=== PATIENT | female | born 1945 | race Caucasian/White ===

== ENCOUNTER 2019-05-31 13:21 | Inpatient (IN) | payer MEDICARE, OTHER ==
[2019-05-31] MEDS ORDERED: IPRATROPIUM/ALBUTEROL (0.5MG/3MG) NEB INH ONE (13:42)
[2019-05-31] MEDS ORDERED: METHYLPREDNISOLONE PF 125MG/VIAL IVP ONE (14:02)
[2019-05-31 14:14] LABS: ABSOLUTE NEUTROPHIL COUNT 5.44; BASO % 0.4 % (0-6); EOS % 0.1 % (0-6); GRAN % 78.8 % (47-80); HEMATOCRIT 43.4 % (35.0-47.0); HEMOGLOBIN 13.9 gm/dl (11.6-16.0); MEAN CELL VOLUME 86.6 fl (81-97); MEAN CORPUSCULAR HEMOGLOBIN 27.7 pg (27-33); MEAN PLATELET VOLUME 10.6 fl (7.4-10.4); MONO % 11.7 % (0-9); PLATELET COUNT 171 K/uL (130-400); RED BLOOD COUNT 5.01 M/uL (3.80-5.40); RED CELL DISTRIBUTION WIDTH 13.7 % (11.5-14.5); WHITE BLOOD COUNT W/O DIFF 6.9 K/uL (4.2-12.2)
[2019-05-31 14:24] LABS: BLOOD UREA NITROGEN 15 mg/dL (8-23); CREATININE 0.7 mg/dL (0.5-0.9); EST GLOMERULAR FILTRATION RATE > 60 mL/min
[2019-05-31 14:25] LABS: TOTAL PROTEIN 7.5 g/dL (6.6-8.7)
[2019-05-31 14:27] LABS: GLUCOSE,RANDOM 109 mg/dL (74-109)
[2019-05-31 14:29] LABS: ALB/GLOB RATIO 1.5 (1.1-1.8); ALBUMIN 4.5 g/dL (4.0-5.0); ALKALINE PHOSPHATASE 106 U/L (35-104); ALT/SGPT 17 U/L (<33); AST/SGOT 25 U/L (10.0-35.0)
--- NOTE | 2019-05-31 15:00 | Emergency Department Record ---
History of Present Illness - General Chief Complaint: Shortness of breath Stated Complaint: NASRA,ALLERGY Time Seen by Provider: 05/31/19 13:56 Source: Patient Mode of Arrival: Ambulatory Limitations: No limitations - History of Present Illness Initial Comments: pt recently moved here and states she is sob because she is allergic to dust and cockroaches. she states there is dust in her current home and cockroaches when she lived in [place]. she quit smoking in 2007. she takes no meds including no allergy meds. 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 Complaint: Shortness of breath Onset/Timin -: Week(s) Severity: Moderate Consistency: Getting worse Context: Allergen exposure, Recent illness, Recent URI, Recent travel Associated Symptoms: Cough Treatments Prior to Arrival: None - Related Data Home Oxygen Therapy: No Home Oxygen Amount: none Home Medications Medication Instructions Recorded Confirmed Last Taken No Home Med [NO HOME MEDS] 05/31/19 05/31/19 Unknown Allergies Allergy/AdvReac Type Severity Reaction Status Date / Time infliximab [From Remicade] Allergy pt thinks Verified 05/31/19 13:29 she had 2 heart attacks on it naproxen [From Naprosyn] Allergy burning Verified 05/31/19 13:29 sensation in knees Travel Screening - Travel/Exposure Within Last 30 Days Have you traveled within the last 30 days?: No Review of Systems Reviewed: No additional complaints except as noted below Constitutional: Reports: As per HPI. Denies: Chills, Fever, Malaise, Night sweats, Weakness, Weight change Eyes: Reports: As per HPI. Denies: Eye discharge, Eye pain, Photophobia, Vision change ENT: Reports: As per HPI, Congestion. Denies: Dental pain, Ear pain, Epistaxis, Hearing loss, Throat pain Respiratory: Reports: As per HPI, Cough. Denies: Dyspnea, Hemoptysis, Stridor, Wheezes Cardiovascular: Reports: As per HPI. Denies: Arrhythmia, Chest pain, Dyspnea on exertion, Edema, Murmurs, Orthopnea, Palpitations, Paroxysmal nocturnal dyspnea, Rheumatic Fever, Syncope Endocrine: Reports: As per HPI, Fatigue. Denies: Heat or cold intolerance, Polydipsia, Polyuria Gastrointestinal: Reports: As per HPI. Denies: Abdominal pain, Constipation, Diarrhea, Hematemesis, Hematochezia, Melena, Nausea, Vomiting Genitourinary: Reports: As per HPI. Denies: Abnormal menses, Discharge, Dyspareunia, Dysuria, Frequency, Hematuria, Incontinence, Retention, Urgency Musculoskeletal: Reports: As per HPI. Denies: Arthralgia, Back pain, Gout, Joint swelling, Myalgia, Neck pain Skin: Reports: As per HPI. Denies: Bruising, Change in color, Change in hair/nails, Lesions, Pruritus, Rash Neurological: Reports: As per HPI. Denies: Abnormal gait, Confusion, Headache, Numbness, Paresthesias, Seizure, Tingling, Tremors, Vertigo, Weakness Psychiatric: Reports: As per HPI. Denies: Anxiety, Auditory hallucinations, Depression, Homicidal thoughts, Suicidal thoughts, Visual hallucinations Hematological/Lymphatic: Reports: As per HPI. Denies: Anemia, Blood Clots, Easy bleeding, Easy bruising, Swollen glands Past Medical History - SOCIAL HISTORY Smoking Status: Former smoker Alcohol Use: Occasional Drug Use: None - RESPIRATORY Hx Respiratory Disorders: Yes Hx COPD: Yes - CARDIOVASCULAR Hx Cardio Disorders: Yes Hx Heart Attack: Yes - NEURO Hx Neuro Disorders: No - GI Hx GI Disorders: No - Hx Genitourinary Disorders: No - ENDOCRINE Hx Endocrine Disorders: No - MUSCULOSKELETAL Hx Musculoskeletal Disorders: Yes Hx Fibromyalgia: Yes - HEMATOLOGY/ONCOLOGY Hx Hematology/Oncology Disorders: No Family Medical History Any Significant Family History?: No Physical Exam - General General Appearance: Alert, Oriented x3, Cooperative, Mild distress - Head Head exam: Normal inspection - Eye Eye exam: Normal appearance, PERRL, EOMI Pupils: Normal accommodation - ENT ENT exam: Normal exam, Mucous membranes moist, Normal external ear exam, Normal orophraynx Ear exam: Normal external inspection. negative: External canal tenderness Nasal Exam: Normal inspection. negative: Discharge, Sinus tenderness Mouth exam: Normal external inspection, Tongue normal Teeth exam: Normal inspection. negative: Dental caries Throat exam: Normal inspection. negative: Tonsillar erythema, Tonsillar exudate - Neck Neck exam: Normal inspection, Full ROM. negative: Tenderness - Respiratory Respiratory exam: Rales, Respiratory distress, Wheezes - Cardiovascular Cardiovascular Exam: Normal rhythm, Normal heart sounds, Tachycardia - GI/Abdominal GI/Abdominal exam: Soft, Normal bowel sounds. negative: Tenderness - Rectal Rectal exam: Deferred - exam: Deferred - Extremities Extremities exam: Normal inspection, Full ROM, Normal capillary refill. negative: Tenderness - Back Back exam: Reports: Normal inspection, Full ROM. Denies: Muscle spasm, Rash noted, Tenderness - Neurological Neurological exam: Alert, CN II-XII intact, Normal gait, Oriented X3 - Psychiatric Psychiatric exam: Normal affect, Normal mood - Skin Skin exam: Dry, Intact, Normal color, Warm Course Vital Signs 05/31/19 05/31/19 05/31/19 13:25 13:45 14:13 Temperature 98.5 F Pulse Rate 104 H 104 H Respiratory 20 18 Rate Blood Pressure 143/98 Pulse Ox 92 L 97 93 L - Reevaluation(s) Reevaluation #1: 05/31/19 17:20 pt feels better. pt ambulated and dropped sats briefly to 89 but bounced right back up to low 90s. pt feels better Reevaluation #2: 05/31/19 17:22 ct neg for pe but pos for inflammation Reevaluation #3: 05/31/19 17:42 pts sats continue to decline to mid 80s so she will be admitted. Medical Decision Making - Lab Data Result diagrams: 05/31/19 13:35 05/31/19 13:35 Lab Results 05/31/19 05/31/19 05/31/19 Range/Units 13:35 13:35 13:35 WBC 6.9 (4.2-12.2) K/uL RBC 5.01 (3.80-5.40) M/uL Hgb 13.9 (11.6-16.0) gm/dl Hct 43.4 (35.0-47.0) % MCV 86.6 (81-97) fl MCH 27.7 (27-33) pg MCHC 32.0 (32-36) g/dl RDW 13.7 (11.5-14.5) % Plt Count 171 (130-400) K/uL MPV 10.6 H (7.4-10.4) fl Gran % 78.8 (47-80) % Lymphocytes % 9.0 L (16-45) % Monocytes % 11.7 H (0-9) % Eosinophils % 0.1 (0-6) % Basophils % 0.4 (0-6) % Absolute Neutrophils 5.44 D-Dimer 1.40 H (0-0.59) mg/L FEU Sodium 133 L (136-145) mmol/L Potassium 3.5 (3.4-4.5) mmol/L Chloride 93 L (98-107) mmol/L Carbon Dioxide 22.0 (22-29) mmol/L Anion Gap 18.0 H (7-16) BUN 15 (8-23) mg/dL Creatinine 0.7 (0.5-0.9) mg/dL Estimated GFR > 60 mL/min Random Glucose 109 (74-109) mg/dL Calcium 9.0 (8.8-10.2) mg/dL Total Bilirubin 0.70 (0.2-1.0) mg/dL AST 25 (10.0-35.0) U/L ALT 17 (<33) U/L Alkaline Phosphatase 106 H (35-104) U/L NT-Pro-B Natriuret Pep 537.80 H (<125) pg/mL Total Protein 7.5 (6.6-8.7) g/dL Albumin 4.5 (4.0-5.0) g/dL Globulin 3.0 (1.4-4.8) gm/dL Albumin/Globulin Ratio 1.5 (1.1-1.8) Disposition Disposition: Admit Clinical Impression: COPD with hypoxia Pneumonia Qualifiers: Pneumonia type: due to unspecified organism Laterality: bilateral Lung location: unspecified part of lung Qualified Code(s): J18.9 - Pneumonia, unspecified organism Disposition: Still a Patient at [facility] Decision to Admit: Admit from ER Decision to Admit Date: 05/31/19 Decision to Admit Time: 17:45 Forms: Patient Portal Access Quality - Quality Measures Quality Measures: N/A - Blood Pressure Screening Does Patient Have Any of the Following: No Blood Pressure Classification: Hypertensive Reading Systolic Measurement: 143 Diastolic Measurement: 98 Screening for High Blood Pressure: < First Hypertensive BP, F/U Documented > [G8950] First Hypertensive Follow-up Interventions: Follow-up with rescreen GT 1 day and LT 4 weeks.
--- NOTE | 2019-05-31 15:51 | CT ANGIOGRAM REPORT ---
EXAMINATION: CT Angiography of the Thorax EXAM DATE: 05/31/2019 3:19 PM TECHNIQUE: Standard protocol CT angiogram images were obtained through the chest following the admini stration of intravenous contrast. Coronal and sagittal MIP 3-D reformations were performed. IV Contrast: 62 mL Omnipaque 350 INDICATION: Acute shortness of breath with elevated d-dimer. COMPARISON: None FINDINGS: Very good pulmonary artery enhancement. No evidence of pulmonary embolus. Normal heart size. No evide nce of right heart strain. Atherosclerotic aortic and coronary artery calcifications. Very mild inflammatory changes in the right middle lobe. Mild right middle lobe and bilateral lower l obe peribronchial thickening. No focal suspicious lesion. Calcified granuloma in the posterior inferi or left lower lobe. No enlarged lymph nodes. No acute bony abnormality. No abnormality detected on slice images through t he upper abdomen. Loss of height at T10 looks old. IMPRESSION: 1. No evidence of pulmonary embolus. 2. Mild peribronchial thickening and very mild right middle lobe inflammatory changes. 3. Aortic and coronary artery atherosclerosis. Dictated by: Dale Gongora MD on 05/31/2019 3:41 PM. .
[2019-05-31] MEDS ORDERED: ALBUTEROL SULFATE (0.083%) 2.5 MG/3 ML NEB INH ONE (16:40)
[2019-05-31] MEDS ORDERED: ALBUTEROL HFA 8 GM INHALER INH ONE (17:00)
[2019-05-31] MEDS ORDERED: AZITHROMYCIN 500 MG TABLET PO ONE (17:01)
[2019-05-31] MEDS ORDERED: ALBUTEROL SULFATE (0.083%) 2.5 MG/3 ML NEB INH PRN (17:56)
[2019-05-31] MEDS ORDERED: CEFTRIAXONE SODIUM 1 GM in 0.9 % SODIUM CHLORIDE 100ML 100 ML IVPB SCH (18:00)
[2019-05-31] MEDS: ACETAMINOPHEN 500 MG TABLET PO PRN (18:03)
[2019-05-31] MEDS: METHYLPREDNISOLONE PF 125MG/VIAL IVP SCH (19:03)
[2019-06-01] MEDS: METHYLPREDNISOLONE PF 125MG/VIAL IVP SCH ×2 (01:17→09:57)
[2019-06-01] MEDS: IPRATROPIUM/ALBUTEROL (0.5MG/3MG) NEB INH PRN ×2 (03:08→21:31)
[2019-06-01] MEDS: ACETAMINOPHEN 500 MG TABLET PO PRN ×3 (03:17→22:24)
[2019-06-01] MEDS: AZITHROMYCIN 500 MG TABLET PO SCH (09:56)
--- NOTE | 2019-06-01 10:20 | History & Physical ---
History of Present Illness - Date of Service Date of Service for History & Physical: 06/01/19 - History of Present Illness Admitting Diagnosis: copd w hypoxia, pneumonia History of Present Illness: Verona Diop is a 73 y.o. F who presented to the [facility] ED on 05/31/19 with c/o sob and cough x 1 week. Has hx of COPD, quit smoking in 2007. Has dust in her home which has made the SOB worse d/t allergies. 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 Has not had a PCP and isn't taking any medications. PMHx: Fibromyalgia, COPD and allergies ED Course -Vitals: T 98.5, HR 104, RR 20, BP 143/98, SPO2 92% on RA -Chest CTA: No PE, Mild peribronchial thickening with mild RML inflammatory changes -Labs: WBC 6.9, D-dimer 1.4, Na 133, AG 18, BNP 537 06/01/19 0930 Vitals: T 97.5, BP 109/74, RR 20, HR 68, SpO2 91% on 1L Pt was observed lying in bed at 45 degree angle. Alert and exhibiting increased work of breathing. Reports that she feels slightly improved from yesterday but not back to baseline. Works "[place] the [place]" and doesn't want to entertain the thought of home oxygen. Reports feeling very jittery and realizes it is likely r/t to the medications she has been receiving. 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 in the last year?: No - Additonal Travel Details Have you been exposed to anyone with a communicable illness?: No - Travel Symptoms Symptom Screening: None Review of Systems Reviewed: No additional complaints except as noted below Constitutional: Denies: Chills, Fever, Malaise, Night sweats, Weakness, Weight change Eyes: Denies: Eye discharge, Eye pain, Photophobia, Vision change ENT: Reports: Congestion. Denies: Dental pain, Ear pain, Epistaxis, Hearing loss, Throat pain Respiratory: Reports: Cough. Denies: Dyspnea, Hemoptysis, Stridor, Wheezes Cardiovascular: Denies: Arrhythmia, Chest pain, Dyspnea on exertion, Edema, Murmurs, Orthopnea, Palpitations, Paroxysmal nocturnal dyspnea, Rheumatic Fever, Syncope Endocrine: Reports: Fatigue. Denies: Heat or cold intolerance, Polydipsia, Polyuria Gastrointestinal: Denies: Abdominal pain, Constipation, Diarrhea, Hematemesis, Hematochezia, Melena, Nausea, Vomiting Genitourinary: Denies: Abnormal menses, Discharge, Dyspareunia, Dysuria, Frequency, Hematuria, Incontinence, Retention, Urgency Musculoskeletal: Denies: Arthralgia, Back pain, Gout, Joint swelling, Myalgia, Neck pain Skin: Denies: Bruising, Change in color, Change in hair/nails, Lesions, Pruritus, Rash Neurological: Denies: Abnormal gait, Confusion, Headache, Numbness, Pares thesias, Seizure, Tingling, Tremors, Vertigo, Weakness Psychiatric: Denies: Anxiety, Auditory hallucinations, Depression, Homicidal thoughts, Suicidal thoughts, Visual hallucinations Hematological/Lymphatic: Denies: Anemia, Blood Clots, Easy bleeding, Easy bruising, Swollen glands Past Medical History - SOCIAL HISTORY Smoking Status: Former smoker Alcohol Use: Occasional Drug Use: None - RESPIRATORY Hx Respiratory Disorders: Yes Hx COPD: Yes - CARDIOVASCULAR Hx Cardio Disorders: No - NEURO Hx Neuro Disorders: No - GI Hx GI Disorders: No - Hx Genitourinary Disorders: No - ENDOCRINE Hx Endocrine Disorders: No - MUSCULOSKELETAL Hx Musculoskeletal Disorders: Yes Hx Fibromyalgia: Yes - HEMATOLOGY/ONCOLOGY Hx Hematology/Oncology Disorders: No Family Medical History Any Significant Family History?: No H&P Meds/Allergies - Allergies Allergies: Allergies Allergy/AdvReac Type Severity Reaction Status Date / Time infliximab [From Remicade] Allergy pt thinks Verified 05/31/19 13:29 she had 2 heart attacks on it naproxen [From Naprosyn] Allergy burning Verified 05/31/19 13:29 sensation in knees - Home Medications Home Medications Medication Instructions Recorded Confirmed Last Taken No Home Med [NO HOME MEDS] 05/31/19 05/31/19 Unknown - Active Medications Active Medications: Current Medications Acetaminophen (Tylenol 500mg Tab) 1,000 mg PO Q6H PRN PRN Reason: PAIN - MILD(1-4)/FEVER Last Admin: 06/01/19 03:17 Dose: 1,000 mg Documented by: Albuterol Sulfate (Albuterol Sulfate) 2.5 mg INH RESP.Q4H PRN PRN Reason: DIFFICULTY IN BREATHING Albuterol/Ipratropium (Duoneb) 3 ml INH RESP.Q6H PRN PRN Reason: WHEEZING Last Admin: 06/01/19 03:08 Dose: 3 ml Documented by: Azithromycin (Zithromax) 500 mg PO DAILY [facility] Last Admin: 06/01/19 09:56 Dose: 500 mg Documented by: CEFTRIAXONE 1GM/50ML BAG (Ceftriaxone 1 Gm-D5w Bag) 1 gm in 50 mls @ 100 mls/hr IVPB Q24H JASON Methylprednisolone Sodium Succinate (Solu-Medrol) 60 mg IVP Q8H JASON Last Admin: 06/01/19 09:57 Dose: 60 mg Documented by: Physical Exam - Vital Signs Vital Signs: Vital Signs - Last 24 Hrs Temp Pulse Pulse Resp BP BP Pulse Ox 06/01/19 08:15 68 20 06/01/19 08:00 68 20 109/74 91 L 06/01/19 04:00 97.5 F L 82 22 133/65 95 06/01/19 03:08 75 20 97 06/01/19 00:00 97.3 F L 89 18 132/76 95 05/31/19 20:00 98.0 F 90 16 109/75 943 H 05/31/19 18:48 18 05/31/19 18:15 99.4 F 116 H 17 115/83 93 L 05/31/19 17:48 105 H 22 109/67 95 05/31/19 17:15 104 H 18 92 L 05/31/19 16:46 101 H 18 97 05/31/19 16:10 93 H 20 120/72 98 05/31/19 14:13 93 L 05/31/19 13:45 104 H 18 97 05/31/19 13:25 98.5 F 104 H 20 143/98 92 L - General General Appearance: Alert, Oriented x3, Cooperative, No acute distress Limitations: No limitations - Head Head exam: Normal inspection - Eye Eye exam: Normal appearance, PERRL, EOMI Pupils: Normal accommodation - ENT ENT exam: Normal exam, Mucous membranes moist, Normal external ear exam, Normal orophraynx Ear exam: Normal external inspection. negative: External canal tenderness Nasal Exam: Normal inspection. negative: Discharge, Sinus tenderness Mouth exam: Normal external inspection, Tongue normal Teeth exam: Normal inspection. negative: Dental caries Throat exam: Normal inspection. negative: Tonsillar erythema, Tonsillar exudate - Neck Neck exam: Normal inspection, Full ROM. negative: Tenderness - Respiratory Respiratory exam: Accessory muscle use - Cardiovascular Cardiovascular Exam: Normal rhythm, Normal heart sounds, Tachycardia - GI/Abdominal GI/Abdominal exam: Soft, Normal bowel sounds. negative: Tenderness - Rectal Rectal exam: Deferred - exam: Deferred - Extremities Extremities exam: Normal inspection, Full ROM, Normal capillary refill. negativ e: Tenderness - Back Back exam: Reports: Normal inspection, Full ROM. Denies: Muscle spasm, Rash noted, Tenderness - Neurological Neurological exam: Alert, CN II-XII intact, Normal gait, Oriented X3 - Psychiatric Psychiatric exam: Normal affect, Normal mood - Skin Skin exam: Dry, Intact, Normal color, Warm Results - Labs Result Diagrams: 05/31/19 13:35 05/31/19 13:35 Labs Last 24 Hours: Laboratory Results - last 24 hr 05/31/19 05/31/19 05/31/19 13:35 13:35 13:35 WBC 6.9 RBC 5.01 Hgb 13.9 Hct 43.4 MCV 86.6 MCH 27.7 MCHC 32.0 RDW 13.7 Plt Count 171 MPV 10.6 H Gran % 78.8 Lymphocytes % 9.0 L Monocytes % 11.7 H Eosinophils % 0.1 Basophils % 0.4 Absolute Neutrophils 5.44 D-Dimer 1.40 H Sodium 133 L Potassium 3.5 Chloride 93 L Carbon Dioxide 22.0 Anion Gap 18.0 H BUN 15 Creatinine 0.7 Estimated GFR > 60 Random Glucose 109 Calcium 9.0 Total Bilirubin 0.70 AST 25 ALT 17 Alkaline Phosphatase 106 H NT-Pro-B Natriuret Pep 537.80 H Total Protein 7.5 Albumin 4.5 Globulin 3.0 Albumin/Globulin Ratio 1.5 VTE H&P Assessment - Risk for VTE Risk for VTE: Yes Risk Level: High Risk Assessment Date: 06/01/19 Risk Assessment Time: 09:30 VTE Orders Placed or Will Be Placed: Yes Plan - Inpatient Certification Inpatient Certification: Admit to inpatient care: Based on my medical assessment, after consideration of patient's risk factors (age, co-morbidities and patient presenting symptoms and acuity), I expect that this patient will remain in the hospital greater than or equal to two midnights and that the services needed warrant inpatient care because: Patient Risk Factors: [] Estimated length of stay: [] The patient may reasonably be expected to be discharged or transferred to a hospital within 96 hours after admission to [facility]. Services needed: [] Post hospital care (if known): [] I certify that my determination is in accordance with my understanding of Medicare requirements for reasonable and necessary inpatient services. - Detailed Diagnosis and Plan (1) COPD with hypoxia Current Visit: Yes Status: Acute Base Code: J44.9 - CHRONIC OBSTRUCTIVE PULMONARY DISEASE, UNSPECIFIED; R09.02 - HYPOXEMIA Comment: 06/01/19 -Chest CTA: No PE, mild peribronchial thickening with RML inflammatory changes -Continue Albuterol and Duonebs, PO Zithromax and IV Rocephin -Stop IV Solumedrol, start Prednisone 40mg daily starting tomorrow a.m. -Continue O2 to keep sats above 90% (2) DVT prophylaxis Current Visit: Yes Status: Acute Base Code: Z29.9 - ENCOUNTER FOR ND OPHYLACTIC MEASURES, UNSPECIFIED Comment: 06/01/19 -High risk d/t age -Lovenox 40mg subq daily (3) Full code status Current Visit: Yes Status: Acute Base Code: Z78.9 - OTHER SPECIFIED HEALTH STATUS Comment: 06/01/19 -Full code
[2019-06-01] MEDS: MONTELUKAST SODIUM 10MG TABLET PO SCH ×2 (11:26→21:17)
[2019-06-01] MEDS: ENOXAPARIN 40 MG/0.4 ML SYR SQ SCH (12:58)
[2019-06-01] MEDS ORDERED: CEFTRIAXONE 1GM/50ML BAG 1 GM/50 ML BAG IVPB SCH (18:00)
[2019-06-02] MEDS ORDERED: PREDNISONE 20 MG TAB PO SCH (08:00)
[2019-06-02] MEDS: AZITHROMYCIN 500 MG TABLET PO SCH (09:25)
[2019-06-02] MEDS: ENOXAPARIN 40 MG/0.4 ML SYR SQ SCH (09:26)
[2019-06-02] MEDS ORDERED: DIPHENHYDRAMINE HCL 25 MG CAPSULE PO PRN (09:55)
--- NOTE | 2019-06-02 14:41 | Discharge Summary ---
Providers Discharge Summary Date: 06/02/19 Date of admission: 05/31/19 18:03 Attending physician: CHINYERE ORTIZ Physical Exam - Vital Signs Vital Signs: Vital Signs - Last 24 Hrs Temp Pulse Pulse Resp BP Pulse Ox 06/02/19 12:00 98.7 F 80 16 109/58 93 L 06/02/19 09:00 60 17 06/02/19 07:51 97.2 F L 60 17 135/68 93 L 06/02/19 05:35 97.7 F 59 L 16 99/50 95 06/02/19 01:10 97.7 F 65 18 116/54 96 06/01/19 22:10 98.1 F 87 18 117/71 91 L 06/01/19 21:31 86 18 95 06/01/19 21:00 18 06/01/19 16:00 98.5 F 72 18 113/68 92 L - General General Appearance: Alert, Oriented x3, Cooperative, No acute distress Limitations: No limitations - Head Head exam: Normal inspection - Eye Eye exam: Normal appearance, PERRL, EOMI Pupils: Normal accommodation - ENT ENT exam: Normal exam, Mucous membranes moist, Normal external ear exam, Normal orophraynx Ear exam: Normal external inspection. negative: External canal tenderness Nasal Exam: Normal inspection. negative: Discharge, Sinus tenderness Mouth exam: Normal external inspection, Tongue normal Teeth exam: Normal inspection. negative: Dental caries Throat exam: Normal inspection. negative: Tonsillar erythema, Tonsillar exudate - Neck Neck exam: Normal inspection, Full ROM. negative: Tenderness - Respiratory Respiratory exam: Accessory muscle use - Cardiovascular Cardiovascular Exam: Normal rhythm, Normal heart sounds, Tachycardia - GI/Abdominal GI/Abdominal exam: Soft, Normal bowel sounds. negative: Tenderness - Rectal Rectal exam: Deferred - exam: Deferred - Extremities Extremities exam: Normal inspection, Full ROM, Normal capillary refill. negative: Tenderness - Back Back exam: Reports: Normal inspection, Full ROM. Denies: Muscle spasm, Rash noted, Tenderness - Neurological Neurological exam: Alert, CN II-XII intact, Normal gait, Oriented X3 - Psychiatric Psychiatric exam: Normal affect, Normal mood - Skin Skin exam: Dry, Intact, Normal color, Warm Hospitalization - Hospitalization Admission Diagnosis: copd w hypoxia, pneumonia - Problem List/Discharge Diagnosis (1) COPD with hypoxia Status: Acute Base Code: J44.9 - CHRONIC OBSTRUCTIVE PULMONARY DISEASE, UNSPECIFIED; R09.02 - HYPOXEMIA Comment: 06/02/19 -Chest CTA: No PE, mild peribronchial thickening with RML inflammatory changes -Contine Albuterol inhaler PRN -Continue Prednisone 40mg daily -Had 3 doses of Azithromycin and IV Rocephin x 2 doses -Start Cefdinir 300mg PO BID x 5 days upon discharge (2) DVT prophylaxis Status: Acute Base Code: Z29.9 - ENCOUNTER FOR PROPHYLACTIC MEASURES, UNSPECIFIED Comment: 06/02/19 -High risk d/t age -Return to normal activity on discharge (3) Full code status Status: Acute Base Code: Z78.9 - OTHER SPECIFIED HEALTH STATUS Comment: 06/02/19 -Full code - Hospitalization Course Disposition: Home, Self-Care Hospital Course: [place] Diop is a 73 y.o. F who presented to the [facility] ED on 05/31/19 with c/o sob and cough x 1 week. Has hx of COPD, quit smoking in 2007. Has dust in her home which has made the SOB worse d/t allergies. 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 Has not had a PCP and isn't taking any medications. PMHx: Fibromyalgia, COPD and allergies ED Course -Vitals: T 98.5, HR 104, RR 20, BP 143/98, SPO2 92% on RA -Chest CTA: No PE, Mild peribronchial thickening with mild RML inflammatory changes -Labs: WBC 6.9, D-dimer 1.4, Na 133, AG 18, BNP 537 06/01/19 0930 Vitals: T 97.5, BP 109/74, RR 20, HR 68, SpO2 91% on 1L Pt was observed lying in bed at 45 degree angle. Alert and exhibiting increased work of breathing. Reports that she feels slightly improved from yesterday but not back to baseline. Works "[place] the road" and doesn't want to entertain the thought of home oxygen. Reports feeling very jittery and realizes it is likely r/t to the medications she has been receiving. 06/02/19 1515 No significant episodes overnight. Alert with ease of breathing on exam. Expressed desire to stay in hospital another day d/t dust at home. Reported difficulty with certain smells on staff throughout the day and stated that she was getting a breakout in her skin around her nose d/t the scents. States that she gets a rash frequently from different smells and puts neosporin on it but sometimes it doesn't work. Procedures: Imaging and X-Rays 05/31/19 14:34 CHEST CTA w contrast [CTA] Stat Cardiology Procedures 05/31/19 17:56 Regional Sales Director .Continuous Abnormal Labs: Abnormal Lab Results 05/31/19 05/31/19 05/31/19 Range/Units 13:35 13:35 13:35 MPV 10.6 H (7.4-10.4) fl Lymphocytes % 9.0 L (16-45) % Monocytes % 11.7 H (0-9) % D-Dimer 1.40 H (0-0.59) mg/L FEU Sodium 133 L (136-145) mmol/L Chloride 93 L (98-107) mmol/L Anion Gap 18.0 H (7-16) Alkaline Phosphatase 106 H (35-104) U/L NT-Pro-B Natriuret Pep 537.80 H (<125) pg/mL Condition at Discharge: (1) Good Discharge Medications - Discharge Medications Prescriptions: Montelukast Sodium [Singulair] 10 mg PO QHS #30 tab Mupirocin [Bactroban] 1 apply TP TID #1 tube Cefdinir 300 mg PO NOW 5 Days #10 capsule Guaifenesin [Mucinex] 600 mg PO BID #14 tabcr Prednisone [Prednisone 20Mg] 40 mg PO DAILYWM 4 Days #8 tab Benzonatate [Tessalon Perle] 100 mg PO TID PRN #10 capsule PRN Reason: Cough Home Medications: Ambulatory Orders Benzonatate [Tessalon Perle] 100 mg PO TID PRN #10 capsule 06/02/19 [Last Taken Unknown] Cefdinir 300 mg PO NOW 5 Days #10 capsule 06/02/19 [Last Taken Unknown] Guaifenesin [Mucinex] 600 mg PO BID #14 tabcr 06/02/19 [Last Taken Unknown] Montelukast Sodium [Singulair] 10 mg PO QHS #30 tab 06/02/19 [Last Taken Unknown] Mupirocin [Bactroban] 1 apply TP TID #1 tube 06/02/19 [Last Taken Unknown] Prednisone [Prednisone 20Mg] 40 mg PO DAILYWM 4 Days #8 tab 06/02/19 [Last Taken Unknown] Discharge Plan - Discharge Instructions Activity at Discharge: Increase Activity as Tolerated Diet at Discharge: Regular Diet Instructions: Montelukast (By mouth), COPD (Chronic Obstructive Pulmonary Disease) (DC) Additional Instructions: Activity: TOLERATED Diet: TOLERATED Consults: [] Follow Up: [] SCHEDULED Dressing/Wound Care: (Type) (Change) Additional: [] New patient appointment with Dr. Nichole at [facility] next June 09 at 1:40pm. Please complete and bring new patient paperwork with you. Call with any questions. Quality Measures - Quality Measures Quality Measures: Advance Directives, Documentation of Current Medications in Medical Record, Elder Maltreatment Screen and Follow-Up Plan, Screening for High Blood Pressure and F/U Documented - Current Medications Quality Measure: Measure #130: Documentation of Current Medications Documentation of Current Medications: <Current Medications Documented/Reviewed> [C8427] - Blood Pressure Screening Quality Measure: Screening for High Blood Pressure and Follow-Up Documented Does Patient Have Any of the Following: No Blood Pressure Classification: Hypertensive Reading Systolic Measurement: 143 Diastolic Measurement: 98 Screening for High Blood Pressure: < Pre-Hypertensive BP, F/U Documented > [G895 0] Pre-Hypertensive Follow-up Interventions: Referral to alternative/primary care provider. - Advance Directives Quality Measure: Measure #47: Care Plan Advance Directives Established: No Advance Directives Information Provided To Patient: Declined Advance Directives on File: No Advance Care Planning: <Care Plan/Decision Maker Documented; Discussed & Documented> [[id number]] - Elder Abuse Suspicion Index Screening: Elder Abuse Suspicion Index Screening Rely on people for bathing, dressing, shopping, banking, etc: No Prevented from getting food, clothes, medication, etc: No Made to feel shamed or threatened by someone: No Forced to sign papers or use money against will: No Feel afraid, touched in ways not wanted or hurt physically: No Poor eye contact, withdrawn, malnourished, cuts or bruises: No Screening Result: Negative result EASI Reference Information: Dony ACKERMAN, Aniyah C, Daniel D, Angel Massey.Development and validation of a tool to assist physicians identification of elder abuse: The Elder Abuse Suspicion Index (EASI ). Journal of Elder Abuse and Neglect, 2008; 20 (3): 276-300. - Elder Maltreatment Screen Quality Measures: Elder Maltreatment Screen and Follow-Up Plan Elder Maltreatment Screen: <Negative, No Follow-Up Plan Required> [G8734]
[2019-06-02] MEDS ORDERED: GUAIFENESIN 600 MG TABCR PO SCH (22:00)
== END 2019-06-02 15:50 | disposition home or self-care (01) ==
LOC: ER 13:21 → MEDSURG 18:03
PROVIDERS: ADMIT Internal Medicine; ATTEND Internal Medicine
DX: J18.9 Pneumonia, unspecified organism (principal); J44.9 Chronic obstructive pulmonary disease, unspecified; R09.02 Hypoxemia; I25.2 Old myocardial infarction; M79.7 Fibromyalgia; Z87.891 Personal history of nicotine dependence
CPT/HCPCS: 85025; 80053; 85379; 83880; 71275; 94640 ×3; 94664; Q9967; 94761; 96374; 99223; 99239; 99285; J0696; J1650; J2930; J7512; J7613